=== PATIENT | female | born 1960 | race Two or more races ===

== ENCOUNTER 2024-01-13 18:19 | Emergency (ER) | payer BC ==
[~2024-01-13] VITALS: Ht 154.9 cm; Wt 59.0 kg
[2024-01-13] MEDS ORDERED: ACETAMINOPHEN ES 500 MG TABLET ONE (19:15)
[2024-01-13] MEDS ORDERED: IBUPROFEN 400 MG TABLET ONE (19:15)
[2024-01-13] MEDS: ACETAMINOPHEN ES 500 MG TABLET PO ONE (19:34)
[2024-01-13] MEDS: IBUPROFEN 400 MG TABLET PO ONE (19:34)
[2024-01-13 21:07] VITALS: BP 124/71; TEMP 98.6; O2SAT 99
== END 2024-01-13 21:07 | disposition home or self-care (01) ==
LOC: ER 18:27
DX: S92.351A Displaced fracture of fifth metatarsal bone, right foot, initial encounter for closed fracture (principal); W01.0XXA Fall on same level from slipping, tripping and stumbling without subsequent striking against object, initial encounter; Y93.89 Activity, other specified; Y92.89 Other specified places as the place of occurrence of the external cause; Y99.8 Other external cause status
CPT/HCPCS: 73600; 73620; A4606; A4663; A9150